=== PATIENT | female | born 1995 | race Caucasian/White ===

== ENCOUNTER 2020-08-12 14:28 | Inpatient (IN) | payer BC ==
[2020-08-12 15:45] LABS: #Eosinphils 0.1 10x3/uL (0.0-0.5); #Monocytes 0.4 10x3/uL (0.0-1.1); #Neutrophils 6.7 10x3/uL (1.5-8.4); %Basophils 0.3 % (0.0-2.0); %Eosinophils 0.8 % (0.0-6.0); %Lymphocytes 21.2 % (18.0-47.0); %Monocytes 4.5 % (0.0-10.0); %Neutrophils 72.7 % (40.0-75.0); Hemoglobin 11.8 g/dL (12.0-15.5); Mean Corpuscular HGB CONC 34.4 g/dL (32.0-36.0); Mean Corpuscular Hemoglobin 30.6 pg (27.0-33.0); Mean Corpuscular Volume 89.1 fl (81.6-98.3); Platelet Count 194 10x3/uL (150-450); RBC Distribution Width 12.2 % (11.5-14.5); Red Blood Cell (RBC) Count 3.85 10x6/uL (3.90-5.03); White Blood Cell (WBC) Count 9.2 10x3/uL (3.5-10.5)
[2020-08-12] MEDS ORDERED: Ondansetron PF 4 MG/2 ML Vial IVP PRN (15:58)
[2020-08-12] MEDS ORDERED: hydrALAZINE 20 MG/ML VIAL SLOW IVP PRN (15:58)
[2020-08-12] MEDS ORDERED: Promethazine HCl 25 MG/ML VIAL IM PRN (15:58)
[2020-08-12] MEDS ORDERED: Tranexamic Acid 1,000 MG in Sodium Chloride 0.9% 250 ML 250 ML IVPB ONE (15:58)
[2020-08-12] MEDS ORDERED: Lactated Ringer's 1,000 ML IV SCH (15:58)
[2020-08-12 16:33] LABS: Hep B Surf Ag Non-Reactive S/CO (NonReactive); Syphilis Antibody Nonreactive (Nonreactive); Syphilis Antibody Index 0.04 S/CO (<1.00 Non-Reactive)
[2020-08-12 16:46] LABS: HBSAg Index 0.18 S/CO (0-0.99)
[2020-08-12] MEDS ORDERED: NS w/ Oxytocin 30 units 500 ML IVPB PRN (16:52)
[2020-08-12] MEDS ORDERED: Tranexamic Acid 1,000 MG/10 ML VIAL ONE (16:52)
[2020-08-12 18:29] LABS: #Monocytes 0.5 10x3/uL (0.0-1.1); #Neutrophils 8.6 10x3/uL (1.5-8.4); %Basophils 0.3 % (0.0-2.0); %Eosinophils 0.4 % (0.0-6.0); %Lymphocytes 18.3 % (18.0-47.0); %Neutrophils 76.6 % (40.0-75.0); Hemoglobin 11.6 g/dL (12.0-15.5); Mean Corpuscular HGB CONC 34.4 g/dL (32.0-36.0); Mean Corpuscular Volume 90.1 fl (81.6-98.3); Mean Platelet Volume 11.5 fl (7.4-10.4); Platelet Count 194 10x3/uL (150-450); RBC Distribution Width 12.2 % (11.5-14.5); Red Blood Cell (RBC) Count 3.74 10x6/uL (3.90-5.03); White Blood Cell (WBC) Count 11.2 10x3/uL (3.5-10.5)
[2020-08-12] MEDS: metroNIDAZOLE 500 MG TAB PO SCH (21:18)
[2020-08-13] MEDS: Tranexamic Acid 1,000 MG in Sodium Chloride 0.9% 250 ML 250 ML IVPB SCH ×2 (05:02→17:41)
[2020-08-13] MEDS: metroNIDAZOLE 500 MG TAB PO SCH (08:47)
[2020-08-13 11:14] LABS: Mean Corpuscular HGB CONC 34.5 g/dL (32.0-36.0); Mean Corpuscular Hemoglobin 31.3 pg (27.0-33.0); Mean Corpuscular Volume 90.6 fl (81.6-98.3); Mean Platelet Volume 11.2 fl (7.4-10.4); Platelet Count 167 10x3/uL (150-450); RBC Distribution Width 12.2 % (11.5-14.5); White Blood Cell (WBC) Count 7.6 10x3/uL (3.5-10.5)
[2020-08-13 15:40] LABS: SARS-CoV-2 PCR by NAA Not Detected (NotDetected)
[2020-08-14] MEDS: Tranexamic Acid 1,000 MG in Sodium Chloride 0.9% 250 ML 250 ML IVPB SCH (05:40)
[2020-08-14] MEDS: Lactated Ringer's 1,000 ML IV SCH (07:07)
[2020-08-14] MEDS: metroNIDAZOLE 500 MG TAB PO SCH (07:11)
[2020-08-14] MEDS ORDERED: Acetaminophen 500 MG TAB PO SCH (09:15)
== END 2020-08-14 10:45 | disposition home or self-care (01) | DRG 833 ==
LOC: CSHERS 14:28 → UNDOADMIN 16:02 → CSHLD 16:02
PROVIDERS: ADMIT Obstetrics & Gynecology; ATTEND Obstetrics & Gynecology
DX: O44.11 Complete placenta previa with hemorrhage, first trimester (principal); Z20.822 Contact with and (suspected) exposure to COVID-19; Z3A.14 14 weeks gestation of pregnancy
CPT/HCPCS: 36415; 85025; 85027; 86780; 86850; 86900; 86901; 87340; 87635; 99284; J7050; U0003; U0005

== ENCOUNTER 2023-03-11 18:50 | Emergency (ER) | payer BC, SELFPAY ==
[2023-03-11 19:32] LABS: #Basophils 0.1 10x3/uL (0.0-0.2); #Eosinphils 0.2 10x3/uL (0.0-0.5); #Monocytes 0.5 10x3/uL (0.0-1.1); #Neutrophils 4.5 10x3/uL (1.5-8.4); %Basophils 0.6 % (0.0-2.0); %Eosinophils 2.2 % (0.0-6.0); %Lymphocytes 38.4 % (18.0-47.0); %Monocytes 5.4 % (0.0-10.0); %Neutrophils 53.3 % (40.0-75.0); Hematocrit 39.7 % (34.9-44.5); Hemoglobin 13.5 g/dL (12.0-15.5); Mean Corpuscular Hemoglobin 29.9 pg (27.0-33.0); Mean Corpuscular Volume 87.8 fl (81.6-98.3); Mean Platelet Volume 11.3 fl (7.4-10.4); Platelet Count 213 10x3/uL (150-450); RBC Distribution Width 12.4 % (11.5-14.5); Red Blood Cell (RBC) Count 4.52 10x6/uL (3.90-5.03); White Blood Cell (WBC) Count 8.5 10x3/uL (3.5-10.5)
[2023-03-11 19:41] LABS: ALT (SGPT) 16 U/L (8-55); AST (SGOT) 22 U/L (5-34); Albumin 4.4 g/dL (3.5-5.0); Alkaline Phosphatase 46 U/L (40-110); Anion Gap 16 mmol/L (10-20); BUN (Urea Nitrogen) 11 mg/dL (7.0-18.7); Bilirubin, Total 0.3 mg/dL (0.2-1.2); Calc. Creatinine Clearance 0 mL/min (70-130); Calcium 9.4 mg/dL (7.8-10.44); Carbon Dioxide 20 mmol/L (22-29); Chloride 104 mmol/L (98-107); Estimated GFR 113; Glucose 92 mg/dL (70-105); Potassium 3.6 mmol/L (3.5-5.1); Protein, Total 7.4 g/dL (6.0-8.3); Sodium 136 mmol/L (136-145)
[2023-03-11 20:04] LABS: Bilirubin Neg (Negative); Blood, Urine 250 (Negative); Glucose, Urine (Dipstick) Normal (Negative); Ketone, Urine Negative (Negative); Leukocyte 25 (Negative); Nitrite Negative (Negative); Protein, Urine (Dipstick) 100 mg/dl (Neg-Trace); Urobilinogen Normal mg/dL (Less than 2)
[2023-03-11 20:10] LABS: Clarity Slightly Cloudy (Clear)
[2023-03-11 20:12] LABS: RBC/HPF Greater than 50 HPF (0-3)
[2023-03-11 20:14] LABS: Bacteria/HPF None Seen HPF (None Seen); CAUTI Indications for Culture Pregnancy; Squamous Epithelial 0-3 HPF (0-3); WBC/HPF 0-3 HPF (0-3)
[2023-03-11 20:15] LABS: Urine Culture Reflex Yes Yes
== END 2023-03-11 22:25 | disposition home or self-care (01) ==
LOC: CSHERS 18:50
DX: O20.0 Threatened abortion (principal); Z3A.13 13 weeks gestation of pregnancy
CPT/HCPCS: 76815; 80053; 81001; 84702; 86900; 86901; 87086

== ENCOUNTER 2023-03-13 06:05 | Day surgery (SDC) | payer OTHER ==
[2023-03-12 15:02] VITALS: BMI 24.3
[2023-03-13] MEDS ORDERED: Midazolam HCl 2 mg/2 ml Vial ONE ×2 (06:34→06:37)
[2023-03-13] MEDS ORDERED: CeleCOXIB 100 MG CAP ONE (06:35)
[2023-03-13] MEDS ORDERED: Famotidine/PF 20 mg/2ml Vial ONE (06:35)
[2023-03-13] MEDS ORDERED: fentaNYL 50 mcg/mL 1 mL Vial ONE (06:37)
[2023-03-13] MEDS ORDERED: Ondansetron PF 4 MG/2 ML Vial ONE (06:37)
[2023-03-13] MEDS ORDERED: Lidocaine 2% PF 5 ML VIAL ONE (06:37)
[2023-03-13] MEDS ORDERED: PROPOFOL 20 ML ONE (06:37)
[2023-03-13] MEDS ORDERED: Dexamethasone 4 mg/ml Vial ONE (06:37)
[2023-03-13] MEDS ORDERED: Oxytocin 10 UNITS/ML VIAL ONE ×2 (06:39→06:44)
[2023-03-13] MEDS ORDERED: Methylergonovine 0.2 MG/ML VIAL ONE (06:42)
[2023-03-13] MEDS ORDERED: Misoprostol 200 MCG TAB ONE (06:42)
[2023-03-13] MEDS ORDERED: Scopolamine 1 mg/72 hour Patch ONE (06:53)
[2023-03-13] MEDS ORDERED: CEFAZOLIN 2 GM VIAL ONE (06:54)
[2023-03-13] MEDS ORDERED: diphenhydrAMINE 50 MG/ML VIAL ONE (07:00)
[2023-03-13] MEDS ORDERED: PROPOFOL 40 ML ONE (07:01)
[2023-03-13] MEDS ORDERED: PROPOFOL 60 ML ONE (07:12)
[2023-03-13] MEDS ORDERED: Silver Nitrate Application 1 EACH ONE (07:24)
== END 2023-03-13 09:15 | disposition home or self-care (01) ==
LOC: CSHSDC 06:05
PROVIDERS: ATTEND Obstetrics & Gynecology
PROC: 10D07Z8 Extraction of Products of Conception, Other, Via Natural or Artificial Opening (ICD-10-PCS; principal; 2023-03-13)
DX: O46.91 Antepartum hemorrhage, unspecified, first trimester (principal); O02.1 Missed abortion; O73.1 Retained portions of placenta and membranes, without hemorrhage; Z87.59 Personal history of other complications of pregnancy, childbirth and the puerperium; Z79.899 Other long term (current) drug therapy
CPT/HCPCS: 86850; 86900; 86901; 88305; J1100; J1200; J2001; J2210; J2250; J2405; J2590; J2704; J3010; S0028